=== PATIENT | female | born 1995 ===

== ENCOUNTER 2017-05-04 23:12 | Emergency (ER) | payer BC, MEDICAID ==
[2017-05-04 23:29] VITALS: BP 124/74; PULSE 102; RESP 18; TEMP 98.6; O2SAT 98
--- NOTE | 2017-05-05 00:01 | ED PDOC ---
HPI: General Adult Time Seen by Provider: 05/04/17 23:40 Chief Complaint (Nursing): Flu-like Symptoms History Per: Patient Additional Complaint(s): 22-year-old female with no significant past medical history, presents to the emergency room complaining of 1-1/2 week history of tactile fever, body aches, chills, runny nose, nasal congestion, sore throat, dry cough. Patient reports taking Robitussin for her symptoms and states that she is starting to feel better with resolution of her cough however still has intermittent tactile fever , runny nose and bodyaches. Otherwise: (-) rash, (-) SOB, (-) chest pain, (-) N/ V/D, (-) abdominal pain, (-) flank pain, (-) urinary symptoms, (-) recent travel , (-) sick contacts. PMD clinic Past Medical History Vital Signs: Last Vital Signs Temp 98.6 F 05/04/17 23:23 Pulse 102 H 05/04/17 23:23 Resp 18 05/04/17 23:23 BP 124/74 05/04/17 23:23 Pulse Ox 98 05/04/17 23:23 - Medical History PMH: No Chronic Diseases - Surgical History Surgical History: No Surg Hx - Family History Family History: States: No Known Family Hx - Social History Current smoker - smoking cessation education provided: No Ex-Smoker (has not smoked in the last 12 months): No - Home Medications Home Medications: Ambulatory Orders Medication Instructions Recorded Azithromycin [Z-Simon] 250 mg PO DAILY #6 tab 05/05/17 Ibuprofen [Motrin Tab] 600 mg PO QID PRN #20 tab 05/05/17 - Allergies Allergies/Adverse Reactions: Allergies Allergy/AdvReac Type Severity Reaction Status Date / Time No Known Allergies Allergy Verified 03/18/14 23:59 Review of Systems Constitutional: Positive for: Fever, Chills ENT: Negative for: Ear Pain, Nose Discharge Respiratory: Positive for: Cough. Negative for: Shortness of Breath, Hemoptysis Gastrointestinal: Negative for: Nausea, Vomiting, Abdominal Pain Genitourinary Female: Negative for: Dysuria, Frequency, Incontinence Skin: Negative for: Rash, Lesions, Jaundice Physical Exam - Reviewed Vital Signs Reviewed: Yes - Physical Exam Comments: GENERAL APPEARANCE: Patient is awake, alert, oriented x 3, in no acute distress. SKIN: Warm, dry; (-) cyanosis, (-) rash. EYES: (-) conjunctival pallor, (-) scleral icterus, (-) conjunctival hemorrhage. ENMT: Mucous membranes moist. TMs: (-) erythema. Airway patent: (-) stridor. Pharynx: (-) erythema, (-) exudate. NECK: (-) tenderness, (-) stiffness, (-) meningismus, (-) lymphadenopathy. CHEST AND RESPIRATORY: (-) accessory muscle use. Lungs: (-) rales, (-) rhonchi, (-) wheezes, (-) rub; breath sounds equal bilaterally. HEART AND CARDIOVASCULAR: (-) irregularity; (-) murmur, (-) gallop, (-) rub. ABDOMEN AND GI: Soft; (-) tenderness, (-) guarding; (-) organomegaly; (-) mass ; (-) CVA tenderness. EXTREMITIES: (-) deformity; (-) cellulitis, (-) lymphangitis; (-) subungual hemorrhage; (-) edema. NEURO AND PSYCH: Mental status as above; (-) focal findings. - ECG O2 Sat by Pulse Oximetry: 98 Medical Decision Making Medical Decision Making: Impression : URI, likely viral illness. Plan : Patient advised that her symptoms are likely due to a viral illness. Advised to continue to drink plenty of fluids, motrin for fever and pain and to monitor her symptoms. If she continues to have persistent symptoms after 3-4 days to start antibiotics as prescribed and to f/u with her pmd. Advised to follow up with primary care physician in 1-2 days without fail. Return to the emergency room at any time for any new or worsening symptoms. Patient states she fully agrees with and understands discharge instructions. States that she agrees with the plan and disposition. Verbalized and repeated discharge instructions and plan. I have given the patient opportunity to ask any additional questions. Disposition - Clinical Impression Clinical Impression: Viral illness - Patient ED Disposition Is Patient to be Admitted: No Counseled Patient/Family Regarding: Diagnosis, Need For Followup, Rx Given - Disposition Disposition: Routine/Home Disposition Time: 00:02 Condition: STABLE Additional Instructions: Thank you for letting us take care of you today. You were treated for viral illness. The emergency medical care you received today was directed at your acute symptoms. If you were prescribed any medication, please fill it and take as directed. It may take several days for your symptoms to resolve. Return to the Emergency Department if your symptoms worsen, do not improve, or if you have any other problems. Please contact your doctor in 2 days for re-evaluation and follow up / or call one of the physicians/clinics you have been referred to that are listed on the Patient Visit Information form that is included in your discharge packet. Bring any paperwork you were given at discharge with you along with any medications you are taking to your follow up visit. Our treatment cannot replace ongoing medical care by a primary care provider (PCP) outside of the emergency department. Thank you for allowing the [facility] team to be part of your care today. 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
== END 2017-05-05 00:14 | disposition home or self-care (01) ==
LOC: H.ER 23:12
DX: B34.9 Viral infection, unspecified (principal)